=== PATIENT | male | born 1960 | race Caucasian/White ===

== ENCOUNTER 2020-06-16 05:16 | Day surgery (SDC) | payer OTHER ==
[~2020-06-16] VITALS: Ht 170.2 cm; Wt 126.1 kg
--- NOTE | ~2020-06-16 | OP ---
PATIENT NAME: AMY FLOYD MEDICAL RECORD: [id number] :62 LOCATION:D[facility] ADMISSION DATE: SURGEON: JOAO GARCIA MD DATE OF OPERATION: 06/16/2020 PREOPERATIVE DIAGNOSIS: Basal cell carcinoma, left conchal bowl and meatus of the ear. POSTOPERATIVE DIAGNOSIS: Basal cell carcinoma, left conchal bowl and meatus of the ear. PROCEDURE: Wide local excision left conchal bowl and postauricular pedicle flap reconstruction. SURGEON: Joao Garcia MD ANESTHESIA: General orotracheal. BLOOD LOSS: 2 cc. SPECIMENS: Left conchal bowl lesion, specimen measured 3.2 x 2.4 cm, frozen section diagnosis. All margins negative. COMPLICATIONS: None. DISPOSITION: Recovery stable. PROCEDURE NOTE: He was brought to the operating room and placed in supine position, sedated and intubated by anesthesia. Head was turned to the right. Left ear was examined using the bilocular microscope. The scabbing and crusting from the ulcerative lesion in the conchal bowl meatus was removed. The ear was examined. It was cleaned with alcohol. The meatus, conchal bowl, postauricular area, postauricular crease were injected with a total of 2 cc of 1% lidocaine 1:100,000 epinephrine. The patient was positioned, prepped and draped in usual fashion. Using a bilocular microscope, the area was examined. The edges of the lesion were marked out with a marking pen and then an incision was made with a 15 blade over 5 mm from the edge of the lesion all the way around the circumference which was basically out to the edge of the helix posteriorly and into the canal medially. These were all taken directly straight down through full thickness through the cartilage. Then, a freer was used to elevate the cartilage off the postauricular skin completely intact. A suture was marked at 12 o'clock. Path showed margins free. The postauricular area was then examined to ronda the back side of the excision. A flap and postauricular crease partially in the postauricular skin and partially on the ear was marked. An incision was made with a 15 blade. This was taken down with the scissors to move this pedicle. This was then rotated anteriorly into the defect. A 4-0 subcutaneous sutures were used to attach the pedicle flap anteriorly to the meatus and the ear canal to hold it in position. Then, the skin of the ear was folded back to make sure the entire skin edges could be closed in a relaxed fashion around the entire defect. Then, the postauricular skin was closed with interrupted subcutaneous 3-0 Vicryl and then a 4-0 Vicryl on the skin. Mupirocin ointment was applied to the postauricular portion and then the flap was tacked into position with subcutaneous 5-0 Vicryl and then 4-0 Vicryl was used to close the skin with some plain gut as well. Once that was all done, flap sat nicely in position, the ear canal was open, it really looked good, it OPERATIVE REPORT [id number] AMY FLOYD was all cleaned up. The ear canal was packed with a cotton ball with mupirocin as was the conchal bowl. The ear was wrapped and a mastoid dressing was applied to protect the ear. He was awakened, extubated, and transported to recovery in good condition. No complications. TRANSINT:[id number] Voice Confirmation ID: [id number] DOCUMENT ID: [id number] JOAO GARCIA MD CC: [id number] DICTATION DATE: 06/16/20 0958 GRAPHIC DESIGN ASSISTANT: 06/16/20 1743 [facility] 06/16/20 [facility] [address] [place] [address]
[2020-06-16 05:40] LABS: BASOPHILS 0.3 % (0-2); EOSINOPHILS 3.7 % (0-7); HEMATOCRIT 44.1 % (42.0-54.0); HEMOGLOBIN 13.9 g/dL (13.5-17.5); IMMATURE GRANULOCYTES 0.4 % (0-5); LYMPHOCYTES 25.4 % (15-50); MCH 27.8 pg (26.0-34.0); MCHC 31.5 g/dL (31.0-37.0); MCV 88.2 fL (80.0-100.0); MEAN PLATELET VOLUME 9.5 fL (7.4-10.4); MONOCYTES 7.6 % (2-11); NEUTROPHILS 62.6 % (40-80); PLATELET COUNT 235 10x3/uL (130-400); RDW 13.5 % (11.5-14.5); WBC 7.4 10x3/uL (4.8-10.8)
[2020-06-16 05:53] LABS: APTT 29.2 SECONDS (22.8-39.4); INR 1.01 (0.85-1.17); PROTIME 13.2 SECONDS (11.6-15.0)
[2020-06-16 05:56] LABS: ANION GAP 10.7 mmol/L (8-16); CALCIUM 9.1 mg/dL (8.5-10.1); CARBON DIOXIDE 28.5 mmol/L (21.0-32.0); CREATININE - SERUM 1.3 mg/dL (0.6-1.3); POTASSIUM - SERUM 4.2 mmol/L (3.5-5.1)
[2020-06-16 06:30] VITALS: BP 151/91; Ht 170.2 cm; Wt 126.1 kg
--- NOTE | 2020-06-16 09:51 | HP ---
PATIENT: AMY FLOYD MEDICAL RECORD: [id number] ACCOUNT: [id number] LOCATION:[facility] : 62 ADMISSION DATE: 06/16/20 PCP: WILLIE BRAY HISTORY AND PHYSICAL EXAMINATION PREOPERATIVE HISTORY AND PHYSICAL HISTORY OF PRESENT ILLNESS: Mr. 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 He is being admitted for excision of that and repair of the defect to the [facility]. PAST MEDICAL HISTORY: Diet-controlled diabetes. CURRENT MEDICATIONS: The patient did not know what it was. PAST SURGICAL HISTORY: Hernia repair, appendectomy, cholecystectomy, eye surgery. ALLERGIES: No known drug allergies. PHYSICAL EXAMINATION: GENERAL: Healthy-appearing. FACE: Normal and symmetric. EYES: Sclerae and conjunctivae are normal. NOSE: No mass, polyps or drainage. ORAL CAVITY AND OROPHARYNX: Tongue protrudes in midline. Pharynx normal. NECK: No masses, no adenopathy. CHEST: Clear. CARDIOVASCULAR: Regular rate and rhythm. No murmur. EAR: left conchal bowl ulcerated deeply with some exophytic portions involving the posterior meatus and pretty much the entire conchal bowl 2 cm or so on the left side. IMPRESSION: Large basal cell carcinoma of the left ear. PLAN: Wide local excision and a local flap reconstruction of the defect. TRANSINT:[id number] Voice Confirmation ID: [id number] DOCUMENT ID: [id number] MOISÉS ACE MD at 0951 CC: [id number] DICTATION DATE: 06/12/20 1048 BARREL BANDER: 06/12/20 1210 [facility] [address] [place] [address]
--- NOTE | 2020-06-16 10:58 | NUR ---
1058 DECREASED BNC TO 1L/MIN. ENCOURAGING PT TO TAKE DEEP BREATHS THROUGH NOSE. PT [id number]
--- NOTE | 2020-06-16 12:08 | NUR ---
1200 O2 SAT IMPROVING. 94% CURRENTLY
--- NOTE | 2020-06-16 14:25 | NUR ---
1230 OXYGEN SATURATION CONSISTENTLY AT 94% UP FROM 90% EARLIER. PT STATES HE IS READY TO BE DISCHARGED HOME. 1235 IV DC'D. CATHETER TIP INTACT. NO BLEEDING AFTER HOLDING PRESSURE. BANDAID APPLIED. 1300 PT READY FOR DISCHARGE HOME. DISCHARGE INSTRUCTIONS HAVE BEEN REVIEWED WITH PT AND HE VOICES UNDERSTANDING OF INSTRUCTIONS.
--- NOTE | 2020-06-16 14:51 | NUR ---
[address] REED ABOUT PT'S CXR REPORT TO SEE IF THE RESULTS WERE COMMUNICATED TO DR ACE EARLIER. HE REPORTS THAT IT HAD NOT AND ASKED THAT I FAX THE CXR REPORT TO DR ACE FOR REVIEW AND FOLLOW UP DIAGNOSTICS. [address] ACE'S OFFICE.
== END 2020-06-16 13:00 | disposition home or self-care (01) ==
LOC: D.OPS 05:16 → D.PAN 08:15 → D.OPS 08:15
PROVIDERS: Anesthesiology; ATTEND Otolaryngology
DX: C44.91 Basal cell carcinoma of skin, unspecified (principal); H93.8X2 Other specified disorders of left ear